=== PATIENT | male | born 1970 | race Caucasian/White ===

== ENCOUNTER 2022-06-18 15:27 | Outpatient (CLI) | payer SELFPAY ==
[2022-06-18 22:15] LABS: Albumin* 4.9 g/dL (3.3-5.0); Chloride* 104 mmol/L (96-114); Potassium* 4.5 mmol/L (3.6-5.1); Sodium* 140 mmol/L (135-149)
[2022-06-18 22:17] LABS: Cholesterol* 208 mg/dL (90-199)
[2022-06-18 22:18] LABS: Alanine Aminotransferase* 128 U/L (4-50); Alkaline Phosphatase* 96 U/L (40-150); Aspartate Amino Transferase* 84 U/L (12-35); Bilirubin Total* 1.2 mg/dL (0.1-1.5); Blood Urea Nitrogen* 20 mg/dL (7-30); Carbon Dioxide* 25 mmol/L (20-32); Glucose* 81 mg/dL (60-115); Total Protein* 7.8 g/dL (6.0-8.3); Triglycerides* 93 mg/dL (40-149)
[2022-06-18 22:19] LABS: HDL Cholesterol* 52 mg/dL (>=40); LDL Cholesterol Calculated 137 mg/dL (<100)
[2022-06-18 23:11] LABS: Creatinine* 1.4 mg/dL (0.5-1.5); Estimated Glomerular Filt Rate 61 ml/min
[2022-06-22 16:51] LABS: PSA Screen* 1.56 ng/mL (0.10-4.00)
[2022-06-22 17:08] LABS: Hepatitis C Virus Antibody* Negative (Negative)
[2022-06-22 21:07] LABS: Hepatitis B Surface Antibody* Negative (Negative)
== END 2022-06-18 15:28 | disposition home or self-care (01) ==
LOC: LKVREF 15:30
PROVIDERS: PCP Physician Assistant Medical; Visit Provider Physician Assistant Medical
DX: Z00.00 Encounter for general adult medical examination without abnormal findings (principal); R79.89 Other specified abnormal findings of blood chemistry; E78.5 Hyperlipidemia, unspecified; F41.9 Anxiety disorder, unspecified; L30.9 Dermatitis, unspecified
CPT/HCPCS: 80053; 80061; 84153; 86706; 86803

== ENCOUNTER 2023-07-05 18:34 | Outpatient (CLI) | payer OTHER, SELFPAY | END 2023-07-05 18:35 | disposition home or self-care (01) | LOC: LKVREF 18:35 | PROVIDERS: PCP Physician Assistant Medical; Visit Provider Physician Assistant Medical | DX: R79.89 Other specified abnormal findings of blood chemistry (principal); Z12.5 Encounter for screening for malignant neoplasm of prostate; Z11.59 Encounter for screening for other viral diseases | CPT/HCPCS: 80053; 80061; 86703; 86803; G0103 ==

== ENCOUNTER 2023-07-22 15:46 | Observation (INO) | payer OTHER, SELFPAY ==
[2023-07-22 15:59] VITALS: BP 139/84; PULSE 137; RESP 16; TEMP 36.5; O2SAT 98; BMI 28.1
[2023-07-22 16:37] LABS: Lactate* 1.5 mmol/L (0.5-1.9)
[2023-07-22 16:48] LABS: PCR FLU A Negative PCR FLU A (Negative); PCR FLU B Negative PCR FLU B (Negative); PCR RSV Negative PCR RSV (Negative); SARS PCR* Negative SARS-CoV-2 (Negative)
[2023-07-22 17:29] LABS: Basophils Absolute Auto 0.01 K/uL (0.00-0.30); Basophils Percent Auto 0.1 % (0.0-3.0); Hematocrit 54.6 % (37.0-53.0); Hemoglobin* 19.3 gm/dL (13.5-17.5); Immature Granulocytes Abs Auto 0.03 K/uL (0.00-0.30); Immature Granulocytes Pct Auto 0.4 %; Mean Corpuscular HGB Conc 35 gm/dL (32-36); Mean Corpuscular Hemoglobin 32 pg (26-34); Mean Corpuscular Volume 91 fL (80-100); Monocytes Percent Auto 10.2 % (0.0-11.0); Neutrophils Percent Auto 81.3 % (42.0-72.0); Platelet Count* 255 K/uL (140-440); RDW Coefficient of Variation % 12.7 % (11.5-15.5); Red Blood Count 6.02 m/uL (4.30-5.90); White Blood Count* 8.37 K/uL (4.50-11.00)
[2023-07-22] MEDS: 0.9 % SODIUM CHLORIDE 1000 ml 1,000 ML IV ×2 (17:29→17:30)
[2023-07-22 17:38] LABS: Slide Review Reflex No
[2023-07-22 18:43] LABS: Albumin* 5.2 g/dL (3.3-5.0); Chloride* 104 mmol/L (96-114); Sodium* 140 mmol/L (135-149)
[2023-07-22 18:44] LABS: Potassium* 4.3 mmol/L (3.6-5.1)
[2023-07-22 18:46] LABS: Anion Gap 19 mEq/L (7-15); Carbon Dioxide* 17 mmol/L (20-32); Creatinine* 2.2 mg/dL (0.5-1.5); Est. Creatinine Clearance* 39.72; Estimated Glomerular Filt Rate 35 ml/min
[2023-07-22 18:47] LABS: Alanine Aminotransferase* 71 U/L (4-50); Alkaline Phosphatase* 100 U/L (40-150); Aspartate Amino Transferase* 49 U/L (12-35); Bilirubin Direct* 0.3 mg/dL (0.0-0.5); Bilirubin Total* 0.5 mg/dL (0.1-1.5); Blood Urea Nitrogen* 34 mg/dL (7-30); Calcium* 10.2 mg/dL (8.4-10.6); Glucose* 135 mg/dL (60-115); Total Protein* 9.8 g/dL (6.0-8.3)
[2023-07-22 18:49] LABS: C Reactive Protein* 4.8 mg/dL (0.5-1.0)
--- NOTE | 2023-07-22 19:22 | ED.GENADULT ---
HPI - General Adult General Date Seen: 07/22/23 Chief complaint: Nausea/Vomiting Stated complaint: vomiting Time Seen by Provider: 07/22/23 16:53 Source: patient Mode of arrival: ambulatory Limitations: no limitations History of Present Illness HPI narrative: Patient is a 53-year-old male, generally healthy, here with his for evaluation of GI symptoms since yesterday. He notes multiple episodes of nonbloody diarrhea, no significant abdominal pain, he has had quite a bit of nausea but has not allowed himself to vomit. He says he hates vomiting. No recent travel or antibiotics. No one else at home has been sick. He has not had a fever that he knows of. His was becoming concerned that he might be getting dehydrated. Prior medical history of cholecystectomy many years ago. He has never had a colonoscopy. He denies tobacco or alcohol use. Related Data Previous Rx's Medication Instructions Recorded atenolol 25 mg tablet 50 mg (2 x 25 mg) PO DAILY #180 07/08/23 tabs clobetasol 0.05 % topical cream 1 applic topical QDAY PRN 07/08/23 dermatitis #45 grams epinephrine 0.3 mg/0.3 mL 0.3 mg (0.3 mL) IM .As Needed as 07/08/23 injection, auto-injector needed PRN anaphylaxis #2 ea loratadine-pseudoephedrine ER 10 1 tab PO QDAY #90 tabs 07/08/23 mg-240 mg tablet,extended [id number] (Claritin-D 24 Hour) omeprazole 20 mg capsule,delayed 20 mg PO DAILY for acid reflux #90 07/08/23 release caps Allergies Allergy/AdvReac Type Severity Reaction Status Date / Time bee venom protein (honey bee) Allergy Severe Swelling Verified 07/22/23 16:01 of Lip/Tongue/Throat minocycline Allergy Severe Anaphylaxis Verified 07/22/23 16:01 Review of Systems Status of ROS: Reports: 10 or more systems reviewed and unremarkable except as noted in History and below [facility] Medical History Sinusitis ?J32.9 - Chronic sinusitis, unspecified (ICD-10) Bronchitis ?J40 - Bronchitis, not specified as acute or chronic (ICD-10) Family History Father COPD (chronic obstructive pulmonary disease) 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 19 yo ( son - payton) , 23 yo ( Brigitte- at [employer]) Never- smoker No recreational drugs Alcohol- average 3 drinks per week . What is your current living situation?: I presently have a place to live Problems where you live: no known problems Problems where you live details: none per patient In the past 12 months, utilities in danger of being shut off: no In past 12 months, lack of transportation kept you from medical appts, meetings, work, or getting things needed for daily living: no In the past 12 mos, have been you worried that your food would run out before you had money to buy more?: never true In the past 12 mos, the food you bought just didn't last and you didn't have money to buy more?: never true Smoking Status: Never smoker Second hand tobacco smoke exposure: No How often do you have a drink containing alcohol: 2-3 times a week Alcohol type: hard liquor How many standard drinks containing alcohol do you have on a typical day: 1 or 2 How often do you have six or more drinks on one occasion: Never AUDIT-C Alcohol total score: 3 Non-prescribed substance use: denies use Caffeine: Yes (1-2 sodas daily) How often does anyone, including family, friends and others, physically hurt you: never How often does anyone, including family, friends and others, insult or talk down to you: never How often does anyone, including family, friends and others, threaten you with harm: never How often does anyone, including family, friends and others, scream or curse at you: never Little interest or pleasure in doing things: not at all Feeling down, depressed, or hopeless: not at all service: No Exam Narrative: Exam Narrative: Vital signs as noted above. In general, an alert, well-appearing patient. Head: Normocephalic, atraumatic. Eyes: Pupils are equal reactive. Extraocular movements are full. Conjunctivae are normal. ENT: Mucous membranes are dry peer Neck: Supple without lymphadenopathy. Heart: Tachycardic and regular. Lungs: Clear bilaterally. No increased work of breathing, crackles or wheezes. Abdomen: Soft and nontender. No organomegaly. Extremities: Well perfused. No edema. No calf tenderness. Pulses intact. Neurologic: Patient is alert and oriented to person and place. Speech is fluent. Face is symmetric. Moves all extremities equally. Affect: Normal. Skin: Warm and dry. Well perfused. Const: Vital Signs, click to edit/add: Vital Signs - 24 hr 07/22/23 15:59 07/22/23 19:36 Temperature 97.7 F Pulse Rate [Right Pulse Oximeter] 137 H 99 Respiratory Rate 16 20 Blood Pressure [Ri ght Upper Arm] 139/84 149/99 H Pulse Oximetry 98 98 Oxygen Delivery Me thod Room Air Room Air Documenting provider has reviewed patient's vital signs: yes Course Course ED Course: Patient presents with nonbloody diarrhea and nausea. Abdominal exam is benign. He is tachycardic here, initial heart rate of 137. Labs are notable for a normal white blood cell count of 8.4, hemoglobin likely hemoconcentrated at 19.3. Metabolic panel is notable for a CO2 of 17, anion gap of 19, a BUN of 34, creatinine of 2.2. Lactate is normal at 1.5. AST mildly elevated at 49, ALT mildly elevated at 71. Alk-phos and bilirubin are normal. CRP is 4.8. COVID, influenza and RSV are negative. Patient had a total of 2 L of fluid. He has not had any vomiting, has had a couple episodes of diarrhea. Symptoms are likely viral, but other considerations would include other causes of diarrhea such as a bacterial or parasitic infection, C diff, no red flags for these. Inflammatory bowel disease would also be a possibility. No history of similar symptoms however. Abdominal exam benign. Afebrile. Repeat vitals do show an improved pulse of 99. I repeated labs however, and I did venous gas after 2 L of fluid he still has a pH of 7.29, pCO2 38, bicarb of 19. Repeat metabolic panel pending, as is a lipase. Overall, his labs suggest considerable dehydration, acidosis, renal insufficiency, and I think he would benefit from admission to the hospital for ongoing hydration and trending of his labs. I have spoke with the hospitalist who is in agreement. Vital Signs Vital signs: Initial Vital Signs Temperature 97.7 F 07/22/23 15:59 Temperature Source Temporal Artery Scan 07/22/23 15:59 Pulse Rate 137 H 07/22/23 15:59 Pulse Rhythm Regular 07/22/23 15:59 Pulse Strength 3+ Normal 07/22/23 15:59 Respiratory Rate 16 07/22/23 15:59 Blood Pressure 139/84 07/22/23 15:59 Blood Pressure Mean 102 07/22/23 15:59 Blood Pressure Position Sitting 07/22/23 15:59 Pulse Oximetry 98 07/22/23 15:59 Oxygen Delivery Method Room Air 07/22/23 15:59 Vital Signs Temperature 97.7 F 07/22/23 15:59 Pulse Rate 137 H 07/22/23 15:59 Respiratory Rate 16 07/22/23 15:59 Blood Pressure 139/84 07/22/23 15:59 Pulse Oximetry 98 07/22/23 15:59 Oxygen Delivery Method Room Air 07/22/23 15:59 Temperature 97.8 F 07/23/23 11:25 Pulse Rate 71 07/23/23 11:25 Respiratory Rate 16 07/23/23 11:25 Blood Pressure 135/91 H 07/23/23 11:25 Pulse Oximetry 98 07/23/23 11:25 Oxygen Delivery Method Room Air 07/23/23 11:25 Medications Administered Medications: Discontinued Medications Generic Name Dose Route Start Last Admin Trade Name Freq PRN Reason Stop Dose Admin Atenolol 50 mg 07/23/23 09:00 07/23/23 08:52 Atenolol 25 Mg Tablet PO Not Given DAILY MEGAN Diphenoxylate HCl/Atropine 1 tab 07/22/23 19:22 07/22/23 19:44 Diphenoxylate-Atrop 2.5-0.025 Tablet PO 07/22/23 19:23 1 tab ONCE ONE Administration Sodium Chloride 1,000 mls @ 1,000 mls/hr 07/22/23 17:30 07/22/23 18:05 0.9 % Sodium Chloride 1000 Ml IV 07/22/23 18:29 Infused .Q1H MEGAN Infusion Sodium Chloride 1,000 mls @ 1,000 mls/hr 07/22/23 17:30 07/22/23 17:29 0.9 % Sodium Chloride 1000 Ml IV 07/22/23 18:29 Infused .Q1H MEGAN Infusion Lactated Ringer's 1,000 mls @ 125 mls/hr 07/22/23 21:15 07/23/23 05:03 Lactated Ringers 1000 Ml IV 125 mls/hr .Q8H MEGAN Administration Loperamide HCl 2 mg 07/22/23 21:28 07/23/23 09:14 Loperamide Hcl 2 Mg Capsule PO 2 mg QID PRN Administration Diarrhea Omeprazole 20 mg 07/23/23 09:00 07/23/23 08:52 Omeprazole [address] PO 20 mg DAILY MEGAN Administration Sodium Chloride 5 ml 07/22/23 21:00 07/23/23 08:11 Sodium Chloride 0.9 % (Flush) 10 Ml Syringe IVF Not Given BID [facility] Medical Decision Making Lab Data Labs: Lab Results 07/22/23 07/22/23 07/22/23 Range/Units 16:04 16:30 19:34 WBC 8.37 (4.50-11.00) K/uL RBC 6.02 H (4.30-5.90) m/uL Hgb 19.3 H (13.5-17.5) gm/dL Hct 54.6 H (37.0-53.0) % MCV 91 (80-100) fL MCH 32 (26-34) pg MCHC 35 (32-36) gm/dL RDW Coeff of Jeffy 12.7 (11.5-15.5) % Plt Count 255 (140-440) K/uL Neut % (Auto) 81.3 H (42.0-72.0) % Lymph % (Auto) 8.0 L (20-44) % Rusk % (Auto) 10.2 (0.0-11.0) % Eos % (Auto) 0.0 (0.0-7.0) % Baso % (Auto) 0.1 (0.0-3.0) % Neut # (Auto) 6.80 (1.7-7.0) K/uL Lymph # (Auto) 0.70 L (0.90-2.90) K/uL Rusk # (Auto) 0.90 (0.00-0.90) K/UL Eos # (Auto) 0.00 (0.00-0.50) K/uL Baso # (Auto) 0.01 (0.00-0.30) K/uL Abs Immat Gran (auto) 0.03 (0.00-0.30) K/uL Imm/Tot Granulo (auto) 0.4 % VBG pH 7.292 L (7.32-7.43) VBG pCO2 38 L (40-50) mmHG VBG pO2 32.3 (25-47) mmHG VBG HCO3 19 L (21-28) mmol/L Sodium 140 139 (135-149) mmol/L Potassium 4.3 4.0 (3.6-5.1) mmol/L Chloride 104 110 (96-114) mmol/L Carbon Dioxide 17 L 17 L (20-32) mmol/L Anion Gap 19 H 12 (7-15) mEq/L BUN 34 H 28 (7-30) mg/dL Creatinine 2.2 H 1.5 (0.5-1.5) mg/dL Estimated Creat Clear 39.72 58.26 Estimated GFR 35 56 ml/min Glucose 135 H 109 (60-115) mg/dL Lactate 1.5 (0.5-1.9) mmol/L Calcium 10.2 8.6 (8.4-10.6) mg/dL Total Bilirubin 0.5 (0.1-1.5) mg/dL Direct Bilirubin 0.3 (0.0-0.5) mg/dL AST 49 H (12-35) U/L ALT 71 H (4-50) U/L Alkaline Phosphatase 100 (40-150) U/L C-Reactive Protein 4.8 H (0.5-1.0) mg/dL Total Protein 9.8 H (6.0-8.3) g/dL Albumin 5.2 H (3.3-5.0) g/dL Lipase 83 (23-300) U/L SARS-CoV-2 (PCR) Negative SARS-CoV-2 (Negative) Influenza Type A (PCR) Negative PCR FLU A (Negative) Influenza Type B (PCR) Negative PCR FLU B (Negative) RSV (PCR) Negative PCR RSV (Negative) Discharge Plan Discharge Activity Level: No Restrictions Discharge Diet: Regular
[2023-07-22 19:36] VITALS: BP 149/99; PULSE 99; RESP 20; O2SAT 98
[2023-07-22 19:40] LABS: Lipase* 83 U/L (23-300)
[2023-07-22 19:44] LABS: HCO3 VBG 19 mmol/L (21-28); PCO2 VBG 38 mmHG (40-50); PO2 VBG 32.3 mmHG (25-47); pH VBG 7.292 (7.32-7.43)
[2023-07-22] MEDS: DIPHENOXYLATE-ATROP 2.5-0.025 TABLET 1 TAB PO (19:44)
[2023-07-22 19:59] LABS: Chloride* 110 mmol/L (96-114); Sodium* 139 mmol/L (135-149)
[2023-07-22 20:02] LABS: Anion Gap 12 mEq/L (7-15); Blood Urea Nitrogen* 28 mg/dL (7-30); Carbon Dioxide* 17 mmol/L (20-32); Creatinine* 1.5 mg/dL (0.5-1.5); Est. Creatinine Clearance* 58.26; Estimated Glomerular Filt Rate 56 ml/min; Glucose* 109 mg/dL (60-115)
[2023-07-22 20:03] LABS: Calcium* 8.6 mg/dL (8.4-10.6)
--- NOTE | 2023-07-22 20:19 | ED.NURSE ---
Report given to med/surg. Will go to room 261.
[2023-07-22 20:22] VITALS: BP 134/115; PULSE 116; RESP 20; TEMP 36.7; O2SAT 98; BMI 27.8
[2023-07-22 20:57] VITALS: RESP 20; O2SAT 98
--- NOTE | 2023-07-22 21:06 | PM.IMHP1 ---
Hospitalist- H&P: HPI History of Present Illness Date Seen: 07/22/23 Chief complaint: vomiting Narrative: Kendrick Ramirez is a 53 year old male with a past medical history of tachyarrhythmia and hypertension on atenolol, hyperlipidemia, GERD and anxiety who presented to the ER with diarrhea and concern for dehydration. He reports that he had been feeling well in his usual state of health until the evening of 07/20/23 when he developed frequent diarrhea and nausea. He has had significant increase in acid reflux, but he does not allow himself to vomit. He has been unable to tolerate any PO in more than 48 hours and has had frequent loose, watery stools. Stools are now more yellow/brown, but started out clear. He has had some anal irritation with blood on paper, but no melena. He traveled to the [facility] about 7 weeks ago but did not have any symptoms of diarrhea until this week. He has not started any new medications or supplements. He drinks bottled water and is not exposed to potentially contaminated water sources. No one else in his home has been ill. He did eat out at a restaurant on Wednesday evening, but states that his had some of his meal and is not showing any symptoms. He denies any abdominal pain. He had some cramping in his feet today, but no fevers, chills or any other concerning symptoms. In the emergency department, Kendrick was noted to have tachycardia with HR 137, but normal BP and only mildly elevated respirations at 16. Labs were remarkable for acute kidney injury with Creatinine at 2.2 and low bicarb at 17, electrolytes relatively normal. CBC shows elevated hgb at 19.3, likely hemoconcentrated. He has mildly elevated AST and ALT, but not concerningly high. He was treated with 2L normal saline and labs were repeated. Fortunately, his renal function appears to be improving, but he continues to have low bicarb at 17. VBG was obtained and he has a metabolic acidosis. His initial anion gap was elevated, but closed with fluid resuscitation. He will be admitted overnight for ongoing fluid resuscitation and bowel rest for presumed viral gastroenteritis. 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 What is your current living situation?: I presently have a place to live Problems where you live: no known problems Problems where you live details: none per patient In the past 12 months, utilities in danger of being shut off: no In past 12 months, lack of transportation kept you from medical appts, meetings, work, or getting things needed for daily living: no In the past 12 mos, have been you worried that your food would run out before you had money to buy more?: never true In the past 12 mos, the food you bought just didn't last and you didn't have money to buy more?: never true Smoking Status: Never smoker Second hand tobacco smoke exposure: No How often do you have a drink containing alcohol: 2-3 times a week Alcohol type: hard liquor How many standard drinks containing alcohol do you have on a typical day: 1 or 2 How often do you have six or more drinks on one occasion: Never AUDIT-C Alcohol total score: 3 Non-prescribed substance use: denies use Caffeine: Yes (1-2 sodas daily) How often does anyone, including family, friends and others, physically hurt you: never How often does anyone, including family, friends and others, insult or talk down to you: never How often does anyone, including family, friends and others, threaten you with harm: never How often does anyone, including family, friends and others, scream or curse at you: never Little interest or pleasure in doing things: not at all Feeling down, depressed, or hopeless: not at all service: No Meds Home Medications and Allergies Allergies Allergy/AdvReac Type Severity Reaction Status Date / Time bee venom protein (honey bee) Allergy Severe Swelling Verified 07/22/23 16:01 of Lip/Tongue/Throat minocycline Allergy Severe Anaphylaxis Verified 07/22/23 16:01 Exam Narrative: Exam Narrative: General: Well nourished, no acute distress HEENT: NCAT, MMM, OP mildly erythematous Neck: No lymphadenopathy or thyromegaly Resp: Breathing is unlabored and CTAB CV: Tachycardic, regular, no murmur Abd: Bowel sounds hyperactive, no hepatosplenomegaly, soft and nontender, nondistended Extremities: No edema Skin: Warm and dry, no rashes Const: Vital Signs, click to edit/add: Vital Signs - 24 hr 07/22/23 15:59 07/22/23 19:36 07/22/23 20:22 Temperature 97.7 F 98.1 F Pulse Rate [Pulse Oximeter] 116 H Pulse Rate [Right Pulse Oximeter] 137 H 99 Respiratory Rate 16 20 20 Blood Pressure [Ri ght Arm] 134/115 H Blood Pressure [Ri ght Upper Arm] 139/84 149/99 H Pulse Oximetry 98 98 98 Oxygen Delivery Me thod Room Air Room Air Room Air 07/22/23 20:22 Temperature Pulse Rate [Pulse Oximeter] Pulse Rate [Right Pulse Oximeter] Respiratory Rate 20 Blood Pressure [Ri ght Arm] Blood Pressure [Ri ght Upper Arm] Pulse Oximetry 98 Oxygen Delivery Me thod Room Air Hospitalist - H&P: Result Labs Labs: Short CBC 07/22/23 Range/Units 16:30 WBC 8.37 (4.50-11.00) K/uL Hgb 19.3 H (13.5-17.5) gm/dL Hct 54.6 H (37.0-53.0) % Plt Count 255 (140-440) K/uL BMP 07/22/23 07/22/23 16:30 19:34 Sodium 140 139 Potassium 4.3 4.0 Chloride 104 110 Carbon Dioxide 17 L 17 L BUN 34 H 28 Creatinine 2.2 H 1.5 Glucose 135 H 109 Calcium 10.2 8.6 Liver Function 07/22/23 Range/Units 16:30 Total Bilirubin 0.5 (0.1-1.5) mg/dL Direct Bilirubin 0.3 (0.0-0.5) mg/dL AST 49 H (12-35) U/L ALT 71 H (4-50) U/L Alkaline Phosphatase 100 (40-150) U/L Albumin 5.2 H (3.3-5.0) g/dL Assessment and Plan Assessment and plan (1) Diarrhea: Problem comment: Patient with 48 hours of frequent diarrhea, nausea, inability to tolerate PO. Afebrile and no leukocytosis. Suspect viral gastroenteritis. -Bowel rest, NPO with sips and chips -IVF overnight -Loperamide ok -If persistent, consider stool studies (low risk for c diff or pathogenic enterobacteria) Status: Acute (2) Dehydration: Problem comment: Secondary to above (likely viral gastroenteritis) -Continue IVF resuscitation with LR Status: Acute (3) Acute kidney injury: Problem comment: Very likely prerenal as Creatinine is improved from 2.2 to 1.5 with IVF resuscitation. -Monitor BMP in am -Continue IVF overnight Status: Acute (4) Metabolic acidosis: Problem comment: Likely due to above with diarrhea and renal impairment. Anion gap closed. Anticipate resolution with rehydration -VBG in am Status: Acute (5) Nausea: Problem comment: Likely related to viral gastroenteritis -Zofran available for symptoms Status: Acute (6) Elevated liver function tests: Problem comment: 02/20/2020-patient had liver ultrasound- showed fatty liver [id number] normalized 07/22/23- mild elevation in AST/ALT likely due to dehydration/viral gastroenteritis., will follow LFTs in am Status: Acute (7) Tachycardia with hypertension: Problem comment: Patient on atenolol. He was tachycardic on arrival, improved some with fluids. 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
[2023-07-22] MEDS: LACTATED RINGERS 1000 ML 1,000 ML 125 ML IV (21:30)
[2023-07-22] MEDS: SODIUM CHLORIDE 0.9 % (FLUSH) 10 ML SYRINGE 5 ML IVF (21:31)
[2023-07-23] VITALS: BP 141/89; PULSE 91; RESP 18; TEMP 36.8; O2SAT 96
[2023-07-23 02:30] VITALS: BP 139/94; PULSE 87; RESP 16; TEMP 36.7; O2SAT 98
[2023-07-23] MEDS: LACTATED RINGERS 1000 ML 1,000 ML 125 ML IV (05:03)
[2023-07-23 06:14] LABS: HCO3 VBG 21 mmol/L (21-28); PCO2 VBG 36 mmHG (40-50); PO2 VBG 36.3 mmHG (25-47); pH VBG 7.359 (7.32-7.43)
[2023-07-23 06:29] LABS: Albumin* 3.9 g/dL (3.3-5.0); Chloride* 109 mmol/L (96-114)
[2023-07-23 06:30] LABS: Potassium* 3.9 mmol/L (3.6-5.1); Sodium* 139 mmol/L (135-149)
[2023-07-23 06:32] LABS: Alkaline Phosphatase* 77 U/L (40-150); Anion Gap 12 mEq/L (7-15); Aspartate Amino Transferase* 67 U/L (12-35); Bilirubin Total* 0.5 mg/dL (0.1-1.5); Blood Urea Nitrogen* 23 mg/dL (7-30); Carbon Dioxide* 18 mmol/L (20-32); Creatinine* 1.2 mg/dL (0.5-1.5); Est. Creatinine Clearance* 72.83; Estimated Glomerular Filt Rate 73 ml/min; Total Protein* 7.3 g/dL (6.0-8.3)
[2023-07-23 06:33] LABS: Alanine Aminotransferase* 82 U/L (4-50); Calcium* 8.8 mg/dL (8.4-10.6); Glucose* 103 mg/dL (60-115); Magnesium* 1.7 mg/dL (1.5-2.6)
[2023-07-23 07:20] VITALS: BP 139/94; PULSE 87; RESP 16; TEMP 36.8; O2SAT 96
[2023-07-23] MEDS: OMEPRAZOLE 20 MG CAPSULE DR PO (08:52)
[2023-07-23] MEDS: LOPERAMIDE HCL 2 MG CAPSULE PO (09:14)
--- NOTE | 2023-07-23 10:33 | PM.DS1 ---
DS: Providers Provider Date Seen: 07/23/23 Date of admission: 07/22/23 20:23 Primary care physician: Katharina Claudio PA-C Admitting Clinician: Maureen Wilson MD Attending Physician on discharge: Kyle Mathews MD Date of Discharge: 07/23/23 DS: Diagnosis Discharge Diagnosis (1) Acute gastroenteritis: Status: Acute Problem details: Severe diarrhea on admission. No fever or bloody diarrhea. Travel history to [facility] 7 weeks ago. No antibiotics. No exposures. Improved without specific therapy (2) Acute kidney injury: Status: Acute Problem details: Pre renal increase in creatinine to 2.2 on admission. Creatinine 1.2 today (3) Metabolic acidosis: Status: Acute Problem details: Resolving with IV fluids (4) Dehydration: Status: Acute Problem details: Resolving with IV fluids and now oral food and fluid. (5) Diarrhea: Status: Acute Problem details: Improving without specific therapy. Consider testing for pathogenic bacteria and C diff if symptoms persist (6) Elevated liver function tests: Status: Acute Problem details: 02/20/2020-patient had liver ultrasound- showed fatty liver [id number] normalized 07/22/23- mild elevation in AST/ALT likely due to dehydration/viral gastroenteritis., will follow LFTs in am DS: Summary Hospital Course Hospital Course: 53-year-old male admitted to the hospital with onset of severe diarrhea and nausea 2 days prior to admission. He had minimal oral intake but no vomiting. He had watery nonbloody stools. He did not have a fever. No history of chronic diarrhea. He had traveled to the [facility] May 2023 but had no illness there or in the subsequent weeks afterwards until this week. He has not had any exposures to any by also has been ill. He has not had any antibiotic therapy recently. At the time of admission he was found to have acute kidney injury. Had evidence of dehydration and metabolic acidosis. He was treated with IV fluids. He received no specific therapy for diarrhea. Symptoms markedly improved during his hospital stay. Renal function also improved. Status at Discharge Functional status at discharge: independent ambulation Overall status at discharge: patient is progressing back to baseline Time Spent with Patient Time attestation: Total time spent providing and/or coordinating discharge services: Time spent: Greater than 30 minutes Exam Narrative: Exam Narrative: He is alert and appears in no distress. Respirations are clear to auscultation. Cardiovascular: S1, S2, regular rate and rhythm. No murmur gallop or rub. Abdomen: Bowel sounds are present. Abdomen is soft without tenderness or mass. Const: Vital Signs, click to edit/add: Vital Signs - 24 hr 07/22/23 15:59 07/22/23 19:36 07/22/23 20:22 Temperature 97.7 F 98.1 F Pulse Rate [Pulse Oximeter] 116 H Pulse Rate [Right Pulse Oximeter] 137 H 99 Respiratory Rate 16 20 20 Blood Pressure [Ri ght Arm] 134/115 H Blood Pressure [Ri ght Upper Arm] 139/84 149/99 H Pulse Oximetry 98 98 98 Oxygen Delivery Me thod Room Air Room Air Room Air 07/22/23 20:22 07/22/23 20:57 07/23/23 00:00 Temperature Pulse Rate [Pulse Oximeter] 91 Pulse Rate [Right Pulse Oximeter] Respiratory Rate 20 20 18 Blood Pressure [Ri ght Arm] Blood Pressure [Ri ght Upper Arm] Pulse Oximetry 98 98 Oxygen Delivery Ia thod Room Air Room Air 07/23/23 00:00 07/23/23 02:30 07/23/23 07:20 Temperature 98.3 F 98.1 F Pulse Rate [Pulse Oximeter] 91 87 87 Pulse Rate [Right Pulse Oximeter] Respiratory Rate 18 16 16 Blood Pressure [Ri ght Arm] 141/89 H 139/94 H Blood Pressure [Ri ght Upper Arm] Pulse Oximetry 96 98 Oxygen Delivery Ia thod Room Air Room Air 07/23/23 07:20 Temperature 98.2 F Pulse Rate [Pulse Oximeter] 87 Pulse Rate [Right Pulse Oximeter] Respiratory Rate 16 Blood Pressure [Ri ght Arm] 139/94 H Blood Pressure [Ri ght Upper Arm] Pulse Oximetry 96 Oxygen Delivery Me thod Room Air Documenting provider has reviewed patient's vital signs: yes DS: Data Data Completed and Pending Labs on day of discharge: Labs from last 24 hours 07/23/23 07/22/23 07/22/23 05:53 19:34 16:30 WBC 8.37 RBC 6.02 H Hgb 19.3 H Hct 54.6 H MCV 91 MCH 32 MCHC 35 RDW Coeff of Jeffy 12.7 Plt Count 255 Neut % (Auto) 81.3 H Lymph % (Auto) 8.0 L [place]ferro % (Auto) 10.2 Eos % (Auto) 0.0 Baso % (Auto) 0.1 Neut # (Auto) 6.80 Lymph # (Auto) 0.70 L [place] # (Auto) 0.90 Eos # (Auto) 0.00 Baso # (Auto) 0.01 Abs Immat Gran (auto) 0.03 Imm/Tot Granulo (auto) 0.4 VBG pH 7.359 7.292 L VBG pCO2 36 L 38 L VBG pO2 36.3 32.3 VBG HCO3 21 19 L Sodium 139 139 140 Potassium 3.9 4.0 4.3 Chloride 109 110 104 Carbon Dioxide 18 L 17 L 17 L Anion Gap 12 12 19 H BUN 23 28 34 H Creatinine 1.2 1.5 2.2 H Estimated Creat Clear 72.83 58.26 39.72 Estimated GFR 73 56 35 Glucose 103 109 135 H Lactate 1.5 Calcium 8.8 8.6 10.2 Magnesium 1.7 Total Bilirubin 0.5 0.5 Direct Bilirubin 0.3 AST 67 H 49 H ALT 82 H 71 H Alkaline Phosphatase 77 100 C-Reactive Protein 4.8 H Total Protein 7.3 9.8 H Albumin 3.9 5.2 H Lipase 83 SARS-CoV-2 (PCR) Influenza Type A (PCR) Influenza Type B (PCR) RSV (PCR) 07/22/23 16:04 WBC RBC Hgb Hct MCV MCH MCHC RDW Coeff of Jeffy Plt Count Neut % (Auto) Lymph % (Auto) [place]ro % (Auto) Eos % (Auto) Baso % (Auto) Neut # (Auto) Lymph # (Auto) [place]ro # (Auto) Eos # (Auto) Baso # (Auto) Abs Immat Gran (auto) Imm/Tot Granulo (auto) VBG pH VBG pCO2 VBG pO2 VBG HCO3 Sodium Potassium Chloride Carbon Dioxide Anion Gap BUN Creatinine Estimated Creat Clear Estimated GFR Glucose Lactate Calcium Magnesium Total Bilirubin Direct Bilirubin AST ALT Alkaline Phosphatase C-Reactive Protein Total Protein Albumin Lipase SARS-CoV-2 (PCR) Negative SARS-CoV-2 Influenza Type A (PCR) Negative PCR FLU A Influenza Type B (PCR) Negative PCR FLU B RSV (PCR) Negative PCR RSV Discharge Plan Discharge Disposition: Home w/ Parent or Adult Date of Admission: 07/22/23 20:23 Attending Provider on Discharge: Froy Mathews Primary Care Provider: Katharina Claudio Anticipated Discharge Date/Time: 07/23/23 11:30 Discharge Medications: Continued atenolol 25 mg tablet 50 mg PO DAILY Qty: 180 3RF clobetasol 0.05 % cream 1 applic topical QDAY PRN (Reason: dermatitis ) Qty: 45 2RF Rx Instructions: APPLY SPARINGLY TO AFFECTED AREA epinephrine 0.3 mg/0.3 mL auto-injector 0.3 mg IM .As Needed as needed PRN (Reason: anaphylaxis) Qty: 2 0RF Claritin-D 24 Hour 10-240 mg tablet extended release 24 hr 1 tab PO QDAY Qty: 90 1RF omeprazole 20 mg capsule,delayed release(DR/EC) 20 mg PO DAILY Qty: 90 3RF Discharge Orders: Discharge Order (Routine); Ordered 07/23/23 Ordered By: Froy Mathews Activity Level: No Restrictions Discharge Diet: Regular Follow Up Appointments: Katharina Claudio, PARománC [Primary Care Provider] - (Follow up next week if not feeling well, back to normal) [facility]
[2023-07-23 11:25] VITALS: BP 135/91; PULSE 71; RESP 16; TEMP 36.6; O2SAT 98
--- NOTE | 2023-07-23 12:13 | PC.NURSE ---
Discharge. pt has been very pleasant. no pain. he is up ab zabrina. he is eating and drinking and voiding with no problems. IV is patent. 1 loose stool. and meds where given. went over discharge packet with pt and . pt went over and signed personal belonging sheet. all belongings and paperwork sent with pt, he walked out with his .
== END 2023-07-23 12:00 | disposition home or self-care (01) ==
LOC: ED 17:14 → MEDSURG 20:24
PROVIDERS: Admitting Provider Family Medicine; Emergency Provider Emergency Medicine; PCP Physician Assistant Medical; Visit Provider Family Medicine
DX: K52.9 Noninfective gastroenteritis and colitis, unspecified (principal); E86.0 Dehydration; N17.9 Acute kidney failure, unspecified; E87.20 Acidosis, unspecified; R79.89 Other specified abnormal findings of blood chemistry; R74.01 Elevation of levels of liver transaminase levels; R00.0 Tachycardia, unspecified; E78.5 Hyperlipidemia, unspecified; I10 Essential (primary) hypertension; K21.9 Gastro-esophageal reflux disease without esophagitis; R11.0 Nausea
CPT/HCPCS: 36415; 80048; 80053; 80076; 82803; 83605; 83690; 83735; 85025; 86140; 87631; 93005; 96360; 96361; 99284; G0378; A9270; J7030; J7120

== ENCOUNTER 2024-08-24 16:16 | Outpatient (CLI) | payer OTHER, SELFPAY | END 2024-08-24 16:17 | disposition home or self-care (01) | LOC: NFLDREF 08-26 23:40 | PROVIDERS: PCP Physician Assistant Medical; Referring Provider Physician Assistant Medical; Visit Provider Physician Assistant Medical | DX: I10 Essential (primary) hypertension (principal); F41.9 Anxiety disorder, unspecified; Z12.5 Encounter for screening for malignant neoplasm of prostate; Z13.6 Encounter for screening for cardiovascular disorders; Z13.9 Encounter for screening, unspecified | CPT/HCPCS: 80053; 80061; 84443; G0103 ==